=== PATIENT | male | born 1970 | race Caucasian/White ===

== ENCOUNTER 2017-07-16 13:09 | Inpatient (IN) | payer OTHER ==
[~2017-07-16] VITALS: Ht 185.4 cm; Wt 80.7 kg
[2017-07-16] MEDS ORDERED: METOPROLOL TARTRATE 5 MG/5 ML VIAL IVP ONE ×6 (13:15→14:02)
[2017-07-16] MEDS ORDERED: IBUP-1627 PO (13:23)
[2017-07-16] MEDS ORDERED: AMOX-427 PO (13:23)
[2017-07-16 13:38] LABS: BASOPHILS # (AUTO) 0.1 K/uL (0.0-8.0); BASOPHILS % (AUTO) 0.9 % (0.0-2.0); EOSINOPHILS # (AUTO) 0.1 K/uL (0.0-0.7); EOSINOPHILS % (AUTO) 1.1 % (0.0-7.0); HEMATOCRIT 49.9 % (36.7-47.1); HEMOGLOBIN 17.4 g/dL (12.5-16.3); LYMPHOCYTES # (AUTO) 2.1 K/uL (20.0-40.0); LYMPHOCYTES % (AUTO) 17.6 % (20.5-51.5); MEAN CORPUSCULAR HEMOGLOBIN 31.5 uug (23.8-33.4); MEAN CORPUSCULAR HGB CONC 35 g/dL (32.5-36.3); MONOCYTES # (AUTO) 0.8 K/uL (2.0-10.0); MONOCYTES % (AUTO) 7.1 % (0.0-11.0); NEUTROPHILS # (AUTO) 8.6 K/uL (1.8-8.9); NEUTROPHILS % (AUTO) 73.3 % (38.5-71.5); PLATELET COUNT (AUTO) 272 K/uL (152-348); RED BLOOD CELL COUNT(AUTO) 5.54 MIL/uL (4.06-5.63); WHITE BLOOD COUNT (AUTO) 11.7 K/uL (3.6-10.2)
[2017-07-16 13:41] LABS: POTASSIUM 4.5 mmol/L (3.5-5.1)
[2017-07-16 13:47] LABS: BILIRUBIN,DIRECT 0.1 mg/dL (0.0-0.2); BILIRUBIN,TOTAL 0.5 mg/dL (0.2-1.0)
[2017-07-16] MEDS ORDERED: ENOXAPARIN SODIUM 80 MG/0.8 ML DISP.SYRIN SQ ONE ×2 (14:15→14:21)
[2017-07-16] MEDS ORDERED: AMOX-430 PO (14:46)
[2017-07-16] MEDS ORDERED: DILTIAZEM HCL 25 MG IV IV PRN (15:30)
[2017-07-16] MEDS ORDERED: HYDROCODONE/APAP 5-325MG TABLET PO PRN (15:30)
[2017-07-16] MEDS ORDERED: ACETAMINOPHEN 325 MG TABLET PO PRN (15:30)
[2017-07-16] MEDS ORDERED: ONDANSETRON 4 MG/2 ML VIAL IV PRN (15:30)
[2017-07-16] MEDS ORDERED: MAGNESIUM HYDROXIDE 30 ML LIQUID UDC PO PRN (15:30)
[2017-07-16] MEDS ORDERED: ZOLPIDEM 5 MG TABLET PO PRN (15:30)
[2017-07-16] MEDS ORDERED: Z GUARD REMEDY PASTE 57 GM TUBE TOP PRN (15:30)
[2017-07-16 15:46] VITALS: BP 120/84
[2017-07-16 16:15] VITALS: BP 118/81
[2017-07-16] MEDS: DILTIAZEM HCL CD 120 MG CAP.SR.24H PO SCH (16:19)
[2017-07-16 16:57] VITALS: BP 118/81
[2017-07-16] MEDS: METOPROLOL TARTRATE 25 MG TABLET PO SCH (20:21)
[2017-07-16 20:39] VITALS: BP 103/77
[2017-07-16] MEDS: ENOXAPARIN SODIUM 80 MG/0.8 ML DISP.SYRIN SQ SCH (23:03)
[2017-07-17 00:45] VITALS: BP 94/68
[2017-07-17 04:00] VITALS: BP 101/73
[2017-07-17 06:55] LABS: MAGNESIUM 2.2 mg/dL (1.8-2.4); PHOSPHOROUS 3.3 mg/dL (2.5-4.9); POTASSIUM 4.6 mmol/L (3.5-5.1)
[2017-07-17 07:17] LABS: BASOPHILS # (AUTO) 0.1 K/uL (0.0-8.0); EOSINOPHILS # (AUTO) 0.2 K/uL (0.0-0.7); HEMATOCRIT 51.8 % (36.7-47.1); HEMOGLOBIN 17.9 g/dL (12.5-16.3); LYMPHOCYTES # (AUTO) 4.7 K/uL (20.0-40.0); LYMPHOCYTES % (AUTO) 39.5 % (20.5-51.5); MEAN CORPUSCULAR HEMOGLOBIN 31.5 uug (23.8-33.4); MEAN CORPUSCULAR HGB CONC 34 g/dL (32.5-36.3); MEAN CORPUSCULAR VOLUME 91.3 fL (73.0-96.2); MONOCYTES % (AUTO) 8.6 % (0.0-11.0); NEUTROPHILS # (AUTO) 5.8 K/uL (1.8-8.9); NEUTROPHILS % (AUTO) 48.9 % (38.5-71.5); PLATELET COUNT (AUTO) 313 K/uL (152-348); RED BLOOD CELL COUNT(AUTO) 5.68 MIL/uL (4.06-5.63); WHITE BLOOD COUNT (AUTO) 11.9 K/uL (3.6-10.2)
[2017-07-17] MEDS: DILTIAZEM HCL CD 120 MG CAP.SR.24H PO SCH (08:41)
[2017-07-17] MEDS: METOPROLOL TARTRATE 25 MG TABLET PO SCH (08:41)
[2017-07-17] MEDS: ENOXAPARIN SODIUM 80 MG/0.8 ML DISP.SYRIN SQ SCH (08:43)
[2017-07-17 08:47] VITALS: BP 112/73
[2017-07-17] MEDS ORDERED: NICOTINE 21 MG/24HR PATCH TD SCH (09:00)
== END 2017-07-17 09:27 | disposition home or self-care (01) | DRG 310 ==
LOC: ER 13:09 → TELE 15:07
PROVIDERS: ADMIT Internal Medicine; ATTEND Internal Medicine
DX: I48.91 Unspecified atrial fibrillation (principal); I07.1 Rheumatic tricuspid insufficiency; Z82.3 Family history of stroke; J02.0 Streptococcal pharyngitis
CPT/HCPCS: 36415; 70030-TC; 71045; 83735; 84100; 84443; 85025; 85730; 93005; 93307; A4663; J1650; J3490